=== PATIENT | female | born 1960 ===

== ENCOUNTER 2018-05-05 11:23 | Emergency (ER) | payer BC ==
--- NOTE | 2018-05-05 12:31 | RAD ---
RIGHT SHOULDER RADIOGRAPHS 3 VIEWS: DATE: 05/05/2018. PROVIDED CLINICAL HISTORY: Right shoulder pain without injury. FINDINGS: There is prominent inhomogeneous mineralization present in the expected location of the rotator cuff superiorly in the conjoined tendon region compatible with changes of acute calcified tendinitis. The re is no evidence for a fracture or other acute osseous abnormality. Subacromial space appears prese rved. The glenohumeral relationship appears normal. Visualized right lung field appears clear. IMPRESSION: Findings compatible with acute calcific peritendinitis. POS: MEG
[2018-05-05] MEDS ORDERED: Ketorolac Tromethamine 30 MG/ML VIAL ONE (13:24)
== END 2018-05-05 14:00 | disposition home or self-care (01) ==
LOC: ERS 11:23
DX: M75.31 Calcific tendinitis of right shoulder (principal)
CPT/HCPCS: 96372; J1885

== ENCOUNTER 2021-07-25 14:05 | Observation (INO) | payer OTHER ==
[2021-07-25 16:00] LABS: #Eosinphils 0.1 thou/uL (0.0-0.7); #Lymphocytes 2.2 thou/uL (1.20-3.40); #Monocytes 0.6 thou/uL (0.11-0.59); #Neutrophils 6.2 thou/uL (1.40-6.50); %Basophils 0.3 % (0.0-1.0); %Eosinophils 1.2 % (0.0-10.0); %Lymphocytes 24.3 % (21.0-51.0); %Monocytes 6.9 % (0.0-10.0); %Neutrophils 67.2 % (42.0-75.0); Hemoglobin 13.8 g/dL (12.0-16.0); Mean Corpuscular Volume 91.2 fL (78.0-98.0); Mean Platelet Volume 7.3 fL (7.4-10.4); Platelet Count 313 thou/uL (130-400); RBC Distribution Width 12.2 % (11.5-14.5); Red Blood Cell (RBC) Count 4.46 mill/uL (4.20-5.40); White Blood Cell (WBC) Count 9.2 thou/uL (4.8-10.8)
[2021-07-25 16:23] LABS: ALT (SGPT) 20 U/L (8-55); AST (SGOT) 18 U/L (5-34); Albumin 4.2 g/dL (3.4-4.8); Alkaline Phosphatase 85 U/L (40-110); Anion Gap 11 mmol/L (10-20); BUN (Urea Nitrogen) 7 mg/dL (9.8-20.1); Bilirubin, Total 0.5 mg/dL (0.2-1.2); Calc. Creatinine Clearance 0 mL/min (70-130); Calcium 10.2 mg/dL (7.8-10.44); Carbon Dioxide 23 mmol/L (23-31); Chloride 108 mmol/L (98-107); Globulin 3.2 g/dL (2.4-3.5); Glucose 111 mg/dL (80-115); Protein, Total 7.4 g/dL (5.8-8.1); Sodium 138 mmol/L (136-145)
[2021-07-25] MEDS ORDERED: Acetaminophen 325 MG TAB PO PRN (18:31)
[2021-07-25 19:18] LABS: Phosphorus 3.2 mg/dL (2.3-4.7)
[2021-07-25 19:20] LABS: Magnesium 1.9 mg/dL (1.6-2.6)
[2021-07-25] MEDS ORDERED: hydrALAZINE 20 MG/ML VIAL SLOW IVP PRN (19:34)
[2021-07-25 19:39] LABS: Free T4 (Free Thyroxine) 1.05 ng/dL (0.70-1.48)
[2021-07-25] MEDS ORDERED: Polyethylene Glycol 3350 17 GM Packet PO PRN (19:41)
[2021-07-25] MEDS ORDERED: Magnesium Oxide 250 MG TAB PO SCH (20:30)
[2021-07-25 21:46] VITALS: BMI 34.3
[2021-07-25 23:38] LABS: SARS-CoV-2 PCR by NAA Not Detected (NotDetected)
[2021-07-26 05:24] LABS: Amphetamine Not Detected (NotDetected); Barbiturates Screen Not Detected (NotDetected); Benzodiazepine Screen Not Detected (NotDetected); Cocaine Metabolite Screen Not Detected (NotDetected); Methadone Not Detected (NotDetected); Methamphetamine Not Detected (NotDetected); Opiate Screen Not Detected (NotDetected); Oxycodone Screen Not Detected (NotDetected); Phencyclidine (PCP) Not Detected (NotDetected); THC/Cannabinoid Screen Not Detected (NotDetected); Tricyclic Screen Not Detected (NotDetected)
[2021-07-26 06:10] LABS: Magnesium 1.8 mg/dL (1.6-2.6); Phosphorus 3.1 mg/dL (2.3-4.7)
[2021-07-26] MEDS ORDERED: FLU VACC QS2021-22(6MOS UP)/PF 60 MCG/0.5 ML SYRINGE IM ONE (09:00)
[2021-07-26] MEDS ORDERED: PHOS-NAK 1 PKT PACK PO SCH (09:00)
[2021-07-26] MEDS ORDERED: Prevnar 13-Val Conj/PF 0.5 ML SYRINGE IM ONE (09:00)
[2021-07-26] MEDS ORDERED: Enoxaparin Sodium 40 MG/0.4 ML SYRINGE SC SCH (09:00)
[2021-07-26] MEDS ORDERED: Magnesium Oxide 250 MG TAB PO SCH (09:00)
[2021-07-26 15:54] VITALS: BP 148/86; TEMP 98.4
== END 2021-07-26 14:30 | disposition home or self-care (01) ==
LOC: ERS 14:05 → ERHOLD 17:23 → NEURO 21:10
PROVIDERS: ADMIT Student in an Organized Health Care Education/Training Program; ATTEND Student in an Organized Health Care Education/Training Program
DX: R00.1 Bradycardia, unspecified (principal); R01.1 Cardiac murmur, unspecified; K59.00 Constipation, unspecified; K21.9 Gastro-esophageal reflux disease without esophagitis; I10 Essential (primary) hypertension; S00.81XA Abrasion of other part of head, initial encounter; W18.30XA Fall on same level, unspecified, initial encounter; Y92.481 Parking lot as the place of occurrence of the external cause
CPT/HCPCS: 36415; 70450; 72125; 80053; 80306; 80307; 83735; 84100; 84439; 84443; 84484; 85025; 93005; 93306; G0378; U0003; U0005